=== PATIENT | male | born 1960 | race Caucasian/White ===

== ENCOUNTER 2018-10-12 11:30 | Outpatient (RCR) | payer OTHER | END 2019-01-10 | disposition home or self-care (01) | LOC: DSME 11:30 | PROVIDERS: ATTEND Internal Medicine | DX: E11.65 Type 2 diabetes mellitus with hyperglycemia (principal); E66.9 Obesity, unspecified ==

== ENCOUNTER → 2018-12-14 | Outpatient (CLI) | payer OTHER ==
--- NOTE | 2018-12-14 08:46 | Diagnostic Imaging Report ---
EXAMINATION: CT without contrast (lung screening). HISTORY: Lung screening. TECHNIQUE: Low-dose computed axial tomographic images of the chest were obtained without contrast for purposes of lung cancer screening. COMPARISON: No comparison is available. FINDINGS: There is a triangular kim-fissural nodule with a 7 mm average diameter in the left midlung (image 115/series 2). This is almost certainly an intrapulmonary lymph node and the ACR Lung-RADS criteria is classified as category 2. There is a 6.5 mm nodule in the inferior segment of the lingula (series 2/image 173). This is classified as category 3. No other nodules are seen. No edema or pneumonia. No pleural effusion or pneumothorax. The heart size is normal. There are severe coronary artery calcifications. No axillary, supraclavicular, or mediastinal lymphadenopathy. Limited views of the upper abdomen are normal. There are no suspicious osseous lesions. IMPRESSION: Lung-RADS category: 3. Recommend a three-month followup exam. Modifier: S Other significant findings: Severe coronary artery calcification. Dictated by: Dictated on workstation # [id number]
== END ==
LOC: RAD 07:56 → EDUNIT# 08:15
PROVIDERS: ATTEND Internal Medicine
DX: Z12.2 Encounter for screening for malignant neoplasm of respiratory organs (principal); I25.10 Atherosclerotic heart disease of native coronary artery without angina pectoris; F17.210 Nicotine dependence, cigarettes, uncomplicated

== ENCOUNTER → 2019-12-17 | Outpatient (CLI) | payer OTHER ==
[2019-12-17 10:00] LABS: ALBUMIN 4.2 GM/DL (3.2-4.5); CHLORIDE 100 MMOL/L (98-107); POTASSIUM 3.4 MMOL/L (3.6-5.0); SODIUM 134 MMOL/L (135-145)
[2019-12-17 10:01] LABS: CALCIUM 9.6 MG/DL (8.5-10.1)
[2019-12-17 10:02] LABS: TRIGLYCERIDES 98 MG/DL (<150); VLDL CHOLESTEROL 20 MG/DL (5-40)
[2019-12-17 10:03] LABS: GLUCOSE 186 MG/DL (70-105); TOTAL PROTEIN 8.2 GM/DL (6.4-8.2)
[2019-12-17 10:04] LABS: CARBON DIOXIDE 21 MMOL/L (21-32)
--- NOTE | 2019-12-17 10:05 | Diagnostic Imaging Report ---
EXAMINATION: CT CHEST SCREENING WO INDICATION: Lung cancer screening in a current smoker with 43 pack year history of smoking. TECHNIQUE: Low-dose helical CT of the chest without IV contrast (Adult Lung Cancer Screening) protocol was performed. Coronal and sagittal reformats were obtained. All CT scans use one or more of the following dose optimizing techniques: automated exposure control, MA and/or KvP adjustment based on a patient size and exam type, or iterative reconstruction. COMPARISON: Lung cancer screening performed on 12/14/2018. FINDINGS: LUNG NODULES, solid unless otherwise specified, axial series 2: Right lung: * 2 mm likely calcified nodule in the right lung apex (image 43), unchanged * No new nodule is identified Left lung: * 7 mm average diameter kim-fissural nodule along the superior aspect of the left major fissure is unchanged, likely representing a benign intrapulmonary lymph node (image 112) * Apparent decrease in size of now 4 mm average diameter nodule in the inferior lingular segment (image 170) * No new nodule is identified OTHER FINDINGS: Low-dose technique and absence of intravenous contrast decreases sensitivity for detection of lymphadenopathy and vascular pathology. TRACHEA AND MAIN BRONCHI: Patent without evidence of tracheal or endobronchial lesion. LUNGS AND PLEURA: No consolidation or pulmonary mass. Fine reticular opacities are demonstrated in the periphery of the lung valle, an unchanged finding likely reflecting mild fibrotic change. No pleural effusion or pneumothorax. MEDIASTINUM AND ERNESTINE: Visualized thyroid gland is normal. No mediastinal or hilar lymphadenopathy, within limits of noncontrast technique. Esophagus is nondistended. HEART AND VESSELS: Heart is normal in size. No pericardial effusion. Atherosclerotic calcification involves the aorta and its branches, including the coronary arteries. Thoracic aorta is nonaneurysmal. DIAPHRAGM AND UPPER ABDOMEN: Unremarkable. CHEST WALL: Incidental note is made of unchanged mild bilateral gynecomastia. BONES: Multilevel degenerative changes involve the spine. No acute osseous abnormality. IMPRESSION: 1. No suspicious change in pulmonary nodules, which are felt to have a very low likelihood of becoming a clinically active cancer. No new nodule is identified. 2. No acute cardiopulmonary process. Chronic and incidental findings are detailed above. Lung-RADS Category: 2, Benign appearance or behavior. Nodules with a very low likelihood of becoming a clinically active cancer due to size or lack of growth. Continue annual screening with low-dose CT in 12 months. MODIFIER: None. OTHER SIGNIFICANT FINDINGS: None. Dictated by: Dictated on workstation # [id number]
[2019-12-17 10:06] LABS: ALKALINE PHOSPHATASE 73 U/L (40-136); CREATININE SERUM 0.81 MG/DL (0.60-1.30); GFR ESTIMATED > 60
[2019-12-17 10:07] LABS: CHOLESTEROL 196 MG/DL (< 200)
[2019-12-17 10:08] LABS: BUN/CREATININE RATIO 20
[2019-12-17 10:09] LABS: HDL CHOLESTEROL 45 MG/DL (40-60)
[2019-12-17 10:10] LABS: ALANINE AMINOTRANSFERASE 100 U/L (0-55)
== END ==
LOC: RAD 08:30
PROVIDERS: ATTEND Internal Medicine
DX: Z00.01 Encounter for general adult medical examination with abnormal findings (principal); Z12.2 Encounter for screening for malignant neoplasm of respiratory organs; E11.65 Type 2 diabetes mellitus with hyperglycemia; I10 Essential (primary) hypertension; N62 Hypertrophy of breast; M47.819 Spondylosis without myelopathy or radiculopathy, site unspecified; R91.8 Other nonspecific abnormal finding of lung field; F17.210 Nicotine dependence, cigarettes, uncomplicated
CPT/HCPCS: 80053; 80061; 84153; 86147 ×2; G0297; 36415

== ENCOUNTER → 2022-09-02 | Outpatient (CLI) | payer OTHER ==
--- NOTE | 2022-09-02 14:40 | Diagnostic Imaging Report ---
CT Lung Screening INDICATION: Screening for lung cancer, 30 pack year history of smoking, current smoker. TECHNIQUE: Noncontrast, low-dose CT imaging performed according to the lung cancer screening protocol. Auto Exposure Controls were utilize during the CT exam to meet ALARA standards for radiation dose reduction. COMPARISON: 12/17/2019 and 12/14/2018. FINDINGS: No significant adenopathy within the chest. Scattered vascular calcifications, including significant calcifications within the coronary arteries. The heart is within normal limits in size. No pericardial effusion. No pleural effusion. The trachea is patent. No pneumothorax. Mild background emphysematous changes. 0.8 x 0.4 cm pleural-based left upper lobe pulmonary nodule is again identified and not significantly changed since 2020, series 2, image 107. Additional sub-0.6 cm lingular and left lower lobe pulmonary nodule seen in the prior exam. No new or actionable right-sided pulmonary nodule. Mild background chronic interstitial lung changes. The minimally visualized upper abdomen is unremarkable. No acute osseous abnormality. IMPRESSION: No new suspicious or actionable pulmonary nodule is identified. Stable benign small bilateral pulmonary nodules. Mild background chronic interstitial lung disease. LUNG-RADS CATEGORY:2: Benign appearance or behavior Follow-up: Continued annual low-dose CT of the chest Dictated by: Dictated on workstation # [id number]
== END ==
LOC: RAD 07:56
PROVIDERS: ATTEND Internal Medicine
DX: Z12.2 Encounter for screening for malignant neoplasm of respiratory organs (principal); Z00.01 Encounter for general adult medical examination with abnormal findings; J84.89 Other specified interstitial pulmonary diseases; R91.8 Other nonspecific abnormal finding of lung field; I10 Essential (primary) hypertension; E11.9 Type 2 diabetes mellitus without complications; R21 Rash and other nonspecific skin eruption; F17.210 Nicotine dependence, cigarettes, uncomplicated
CPT/HCPCS: 71271